=== PATIENT | female | born 1980 | race American Indian/Alaskan Native ===

== ENCOUNTER 2018-07-11 06:05 | Emergency (ER) | payer BC ==
[2018-07-11] MEDS ORDERED: ASPIRIN PO ONE (06:16)
--- NOTE | 2018-07-11 06:49 | XRay Report ---
FINAL REPORT EXAM: XR CHEST ROUTINE 2V HISTORY: chest pain, SOB with exertion TECHNIQUE: PA and lateral views of the chest were submitted. FINDINGS: The heart size and vascularity appear normal. The lungs are clear. Pleural fluid is not seen. The skeletal structures reveal a dextroscoliosis of the dorsal spine. IMPRESSION: No acute cardiopulmonary process.
[2018-07-11 07:08] LABS: Hematocrit 39.9 % (30.3-42.9); Hemoglobin 13.2 gm/dl (10.1-14.3); Mean Corpuscular HGB Conc 33 % (30-34); Mean Corpuscular Hemoglobin 28 pg (28-32); Mean Corpuscular Volume 86 fl (79-97); Platelet Count 299 K/mm3 (140-440); Red Blood Count 4.65 M/mm3 (3.65-5.03); Red Cell Distribution Width 13.4 % (13.2-15.2)
[2018-07-11 09:21] LABS: Basophils % (Manual) 0 % (0.0-1.8); RBC Morphology Normal; Total Cells Counted 100
[2018-07-11 09:25] LABS: BUN/Creatinine Ratio 19; Blood Urea Nitrogen 13 mg/dL (7-17); Hemolysis Index 170
--- NOTE | 2018-07-11 10:14 | Emergency Department Report ---
ED Chest Pain HPI - General Chief Complaint: Chest Pain Stated Complaint: CHEST,SHOULDER,BACK PAIN Time Seen by Provider: 07/11/18 10:13 Source: patient, RN notes reviewed Mode of arrival: Ambulatory Limitations: No Limitations - History of Present Illness Initial Comments: This is a 37-year-old female who was not known to this provider previously, right-hand dominant, reports that she is not , and reports that she does not take oral contraceptives. She denies leg pain, leg swelling, recent immobility, and also denies DVT, pulmonary embolus risk factors. She denies recent cocaine use and denies recent aspirin use. She denies family history of coronary artery disease or DVT, pulmonary embolus. The patient presents to the ER with complaint of left-sided chest wall pain. The pain is intermittent since Tuesday. Today is Tuesday. The pain does not radiates to the back, arms or neck. There is no nausea, vomiting or diaphoresis. The pain increases with palpation, abduction, adduction and range of motion. It decreases with rest. MD Complaint: chest pain -: Gradual Onset: during rest, other Pain Location: left chest Pain Radiation: none Severity: mild Quality: aching Consistency: intermittent Improves With: rest Worsens With: palpation, movement Aspirin use within the Past 7 Days: (0) No - Related Data On Oral Contraceptives: No Previous Rx's Medication Instructions Recorded Last Taken Type Acetaminophen/Codeine 1 tab PO Q6H PRN #20 tab 10/23/14 Unknown Rx [Acetaminophen-Codeine #3 TAB] Cyclobenzaprine [Flexeril 10mg] 10 mg PO TID PRN #30 tablet 10/23/14 Unknown Rx Ibuprofen [Motrin] 600 mg PO Q8H PRN #40 tablet 10/23/14 Unknown Rx Acetaminophen [Tylenol Arthritis] 650 mg PO Q6HR PRN #30 tablet.er 07/11/18 Unknown Rx Ibuprofen [Motrin] 600 mg PO Q8H PRN #30 tablet 07/11/18 Unknown Rx Allergies Allergy/AdvReac Type Severity Reaction Status Date / Time No Known Allergies Allergy Verified 10/23/14 06:48 Heart Score - HEART Score History: Slightly suspicious EKG: Normal Age: < 45 Risk factors: No known risk factors Troponin: < normal limit HEART Score: 0 - Critical Actions Critical Actions: 0-3 pts:0.9-1.7%risk of adverse cardiac event.Candidate for discharge ED Review of Systems ROS: Stated complaint: CHEST,SHOULDER,BACK PAIN Other details as noted in HPI Constitutional: denies: diaphoresis, fever Eyes: denies: eye discharge ENT: denies: epistaxis Respiratory: denies: cough Cardiovascular: chest pain Gastrointestinal: denies: nausea, vomiting Genitourinary: denies: dysuria Musculoskeletal: myalgia. denies: back pain Skin: denies: lesions Neurological: denies: weakness Psychiatric: denies: anxiety ED Past Medical Hx - Past Medical History Previous Medical History?: No - Surgical History Past Surgical History?: No Additional Surgical History: x4 - Social History Smoking Status: Never Smoker Substance Use Type: None - Medications Home Medications: Home Medications Medication Instructions Recorded Confirmed Last Taken Type Acetaminophen/Codeine 1 tab PO Q6H PRN #20 tab 10/23/14 Unknown Rx [Acetaminophen-Codeine #3 TAB] Cyclobenzaprine [Flexeril 10mg] 10 mg PO TID PRN #30 tablet 10/23/14 Unknown Rx Ibuprofen [Motrin] 600 mg PO Q8H PRN #40 tablet 10/23/14 Unknown Rx Acetaminophen [Tylenol Arthritis] 650 mg PO Q6HR PRN #30 tablet.er 07/11/18 Unknown Rx Ibuprofen [Motrin] 600 mg PO Q8H PRN #30 tablet 07/11/18 Unknown Rx ED Physical Exam - General Limitations: No Limitations General appearance: alert, in no apparent distress - Head Head exam: Present: atraumatic, normocephalic - Eye Eye exam: Present: normal appearance, EOMI. Absent: nystagmus - ENT ENT exam: Present: normal exam, normal orophraynx, mucous membranes moist, normal external ear exam - Neck Neck exam: Present: normal inspection, full ROM. Absent: tenderness, meningismus - Respiratory Respiratory exam: Present: normal lung sounds bilaterally, chest wall tenderness , other (during chest, breast exam, chaperoned by nurse JOVANI REDMAN). Absent: respiratory distress - Cardiovascular Cardiovascular Exam: Present: regular rate, normal rhythm, normal heart sounds. Absent: bradycardia, tachycardia, irregular rhythm, systolic murmur, diastolic murmur, rubs, gallop - GI/Abdominal GI/Abdominal exam: Present: soft. Absent: distended, tenderness, guarding, rebound, rigid, pulsatile mass - Extremities Exam Extremities exam: Present: normal inspection, full ROM, normal capillary refill , other (2+ pulses noted in the bilateral upper, lower extremities. Compartments soft. No long bony tenderness. The pelvis is stable.). Absent: tenderness, pedal edema, joint swelling, calf tenderness - Back Exam Back exam: Present: normal inspection, full ROM. Absent: tenderness, CVA tenderness (R), paraspinal tenderness, vertebral tenderness - Neurological Exam Neurological exam: Present: alert, oriented X3, CN II-XII intact, normal gait, other (Extraocular movements intact. Tongue midline. No facial droop. Facial sensation intact to light touch in the V1, V2, V3 distribution bilaterally. 5 and 5 strength in 4 extremities.. Sensation is intact to light touch in 4 extremities.). Absent: motor sensory deficit - Psychiatric Psychiatric exam: Present: normal affect, normal mood - Skin Skin exam: Present: warm, dry, intact, normal color. Absent: rash ED Course Vital Signs 07/11/18 07/11/18 07/11/18 06:10 06:12 06:18 Temperature 98.8 F 98.8 F 98.2 F Pulse Rate 106 H 108 H 78 Respiratory 18 18 18 Rate Blood Pressure 144/91 144/91 173/86 Blood Pressure [Right] O2 Sat by Pulse 98 98 94 Oximetry 07/11/18 10:25 Temperature 98.3 F Pulse Rate 84 Respiratory 20 Rate Blood Pressure Blood Pressure 118/70 [Right] O2 Sat by Pulse 99 Oximetry BARTOLOME score - Bartolome Score Age > 65: (0) No Aspirin use within the Past 7 Days: (0) No 3 or more CAD Risk Factors: (0) No 2 or more Angina events in past 24 hrs: (0) No Known CAD with more than 50% Stenosis: (0) No Elevated Cardiac Markers: (0) No ST Deviation Greater than 0.5mm: (0) No BARTOLOME Score: 0 ED Medical Decision Making - Lab Data Result diagrams: 07/11/18 06:59 07/11/18 06:55 Vital Signs 07/11/18 07/11/18 07/11/18 06:10 06:12 06:18 Temperature 98.8 F 98.8 F 98.2 F Pulse Rate 106 H 108 H 78 Respiratory 18 18 18 Rate Blood Pressure 144/91 144/91 173/86 Blood Pressure [Right] O2 Sat by Pulse 98 98 94 Oximetry 07/11/18 10:25 Temperature 98.3 F Pulse Rate 84 Respiratory 20 Rate Blood Pressure Blood Pressure 118/70 [Right] O2 Sat by Pulse 99 Oximetry Lab Results 07/11/18 07/11/18 07/11/18 Range/Units 06:55 06:59 09:21 WBC 5.6 (4.5-11.0) K/mm3 RBC 4.65 (3.65-5.03) M/mm3 Hgb 13.2 (10.1-14.3) gm/dl Hct 39.9 (30.3-42.9) % MCV 86 (79-97) fl MCH 28 (28-32) pg MCHC 33 (30-34) % RDW 13.4 (13.2-15.2) % Plt Count 299 (140-440) K/mm3 Lymph % (Auto) Administrative Executive Add Manual Diff Complete Total Counted 100 Seg Neutrophils % Administrative Executive Seg Neuts % (Manual) 46.0 (40.0-70.0) % Band Neutrophils % 0 % Lymphocytes % (Manual) 52.0 H (13.4-35.0) % Reactive Lymphs % (Man) 0 % Monocytes % (Manual) 1.0 (0.0-7.3) % Eosinophils % (Manual) 1.0 (0.0-4.3) % Basophils % (Manual) 0 (0.0-1.8) % Metamyelocytes % 0 % Myelocytes % 0 % Promyelocytes % 0 % Blast Cells % 0 % Nucleated RBC % 1.0 H (0.0-0.9) % Seg Neutrophils # Man 2.6 (1.8-7.7) K/mm3 Band Neutrophils # 0.0 K/mm3 Lymphocytes # (Manual) 2.9 (1.2-5.4) K/mm3 Abs React Lymphs (Man) 0.0 K/mm3 Monocytes # (Manual) 0.1 (0.0-0.8) K/mm3 Eosinophils # (Manual) 0.1 (0.0-0.4) K/mm3 Basophils # (Manual) 0.0 (0.0-0.1) K/mm3 Metamyelocytes # 0.0 K/mm3 Myelocytes # 0.0 K/mm3 Promyelocytes # 0.0 K/mm3 Blast Cells # 0.0 K/mm3 WBC Morphology Not Reportable Hypersegmented Neuts Not Reportable Hyposegmented Neuts Not Reportable Hypogranular Neuts Not Reportable Smudge Cells Not Reportable Toxic Granulation Not Reportable Toxic Vacuolation Not Reportable Dohle Bodies Not Reportable Pelger-Huet Anomaly Not Reportable Pat Rods Not Reportable Platelet Estimate Appears normal Clumped Platelets Not Reportable Plt Clumps, EDTA Not Reportable Large Platelets Not Reportable Giant Platelets Not Reportable Platelet Satelliting Not Reportable Plt Morphology Comment Not Reportable RBC Morphology Normal Dimorphic RBCs Not Reportable Polychromasia Not Reportable Hypochromasia Not Reportable Poikilocytosis Not Reportable Anisocytosis Not Reportable Microcytosis Not Reportable Macrocytosis Not Reportable Spherocytes Not Reportable Pappenheimer Bodies Not Reportable Sickle Cells Not Reportable Target Cells Not Reportable Tear Drop Cells Not Reportable Ovalocytes Not Reportable Helmet Cells Not Reportable [place] Bodies Not Reportable [place] Rings Not Reportable [place] Cells Not Reportable Bite Cells Not Reportable Crenated Cell Not Reportable Elliptocytes Not Reportable Acanthocytes (Spur) Not Reportable Rouleaux Not Reportable Hemoglobin C Crystals Not Reportable Schistocytes Not Reportable Malaria parasites Not Reportable Rogelio Bodies Not Reportable Hem Pathologist Commnt No Sodium 133 L (137-145) mmol/L Potassium 4.8 (3.6-5.0) mmol/L Chloride 97.2 L (98-107) mmol/L Carbon Dioxide 21 L (22-30) mmol/L Anion Gap 20 mmol/L BUN 13 (7-17) mg/dL Creatinine 0.7 (0.7-1.2) mg/dL Estimated GFR > 60 ml/min BUN/Creatinine Ratio 19 % Glucose 104 H (65-100) mg/dL Calcium 9.0 (8.4-10.2) mg/dL Troponin T < 0.010 < 0.010 (0.00-0.029) ng/mL - EKG Data -: EKG Interpreted by Md - EKG Data When compared to previous EKG there are: previous EKG unavailable 07/11/18 11:12 EKG #1 shows normal sinus, 93 bpm, normal axis, normal intervals, not a STEMI, repeat EKG is unchanged. - Radiology Data Radiology results: report reviewed, image reviewed X-ray of the chest is negative for acute disease - Medical Decision Making Differential diagnosis, including but not limited to: GERD, gastritis, costochondritis, hiatal hernia, acute coronary syndrome, musculoskeletal chest wall pain Assessment and plan: 37-year-old female with 3-4 days of intermittent chest wall pain, which increases with palpation, range of motion, decreases with rest. EKG unremarkable 2, troponin negative 2, felt improved after pain medication, low risk by BARTOLOME score, heart score, has no pulmonary embolus or DVT risk factors and is low risk by well's criteria. Has equal pulses in the upper, lower extremity; unlikely to be aortic event. Patient at low risk for major first cardiac event, and is medically suitable to follow-up with an outpatient primary care doctor or derrick boat leverman to complete her low risk cardiology risk stratification. Critical care attestation.: If time is entered above; I have spent that time in minutes in the direct care of this critically ill patient, excluding procedure time. ED Disposition Clinical Impression: Chest wall pain Disposition: DC-01 TO HOME OR SELFCARE Is pt being admited?: No Does the pt Need Aspirin: No Condition: Stable Instructions: Costochondritis (ED) Additional Instructions: Rest, and avoid heavy lifting. Avoid strenuous physical activity. Take the pain medications as directed. Follow up with a primary care doctor or derrick boat leverman within the next 5 days. Return to the ER right away with new pain , worsened pain, migration of pain, projectile vomiting, change in mental status , confusion, inability to tolerate liquid feeds. Referrals: [facility] [Provider Group] - 3-5 Days [facility] [Provider Group] - 3-5 Days [facility] [Provider Group] - 3-5 Days
[2018-07-11] MEDS ORDERED: TORADOL IM ONE (10:23)
[2018-07-11 11:17] VITALS: BP 116/74
== END 2018-07-11 12:16 | disposition home or self-care (01) ==
LOC: ED 06:05
DX: R07.89 Other chest pain (principal)
CPT/HCPCS: 36415; 71046; 80048; 84484; 85007; 85025; 93005; 93010; 96372; 99284; J1885

== ENCOUNTER 2019-03-29 07:53 | Emergency (ER) | payer BC ==
--- NOTE | 2019-03-29 08:38 | Emergency Department Report ---
HPI - General Chief Complaint: Upper Respiratory Infection Time Seen by Provider: 03/29/19 08:20 - HPI HPI: 38-year-old female presents to the emergency department with complaint of a lingering cough. She says it is mostly dry but she will have coughing fits. She she went to see a physician at [facility] about 2 weeks ago for this cough and was placed on prednisone, Ventolin inhaler, Z-Tejas and Tessalon Perles. She finished these medications about one week ago and does not feel that her cough has improved significantly. Last night she was at a movie theater and had some coughing fits and felt short of breath. She denies any fever, chest pain, back pain, nausea, vomiting or diaphoresis. She denies any other past medical history. She has not a tobacco smoker and denies any illicit drug use. No recent travel. ED Past Medical Hx - Past Medical History Previous Medical History?: No - Surgical History Additional Surgical History: x4 - Social History Smoking Status: Never Smoker Substance Use Type: None - Medications Home Medications: Home Medications Medication Instructions Recorded Confirmed Last Taken Type Acetaminophen/Codeine 1 tab PO Q6H PRN #20 tab 10/23/14 Unknown Rx [Acetaminophen-Codeine #3 TAB] Cyclobenzaprine [Flexeril 10mg] 10 mg PO TID PRN #30 tablet 10/23/14 Unknown Rx Ibuprofen [Motrin] 600 mg PO Q8H PRN #40 tablet 10/23/14 Unknown Rx Acetaminophen [Tylenol Arthritis] 650 mg PO Q6HR PRN #30 tablet.er 07/11/18 Unknown Rx Ibuprofen [Motrin] 600 mg PO Q8H PRN #30 tablet 07/11/18 Unknown Rx Prednisone [predniSONE 10 mg 10 mg PO .TAPER #1 tab.ds.pk 03/29/19 Unknown Rx (6-Day Pack, 21 Tabs)] guaiFENesin/CODEINE [Robitussin AC] 5 ml PO Q6H PRN #100 oral.liqd 03/29/19 Unknown Rx ED Review of Systems ROS: Stated complaint: COUGH/SOB Other details as noted in HPI Constitutional: denies: chills, fever Eyes: denies: eye pain, vision change ENT: denies: ear pain, throat pain Respiratory: cough, shortness of breath. denies: orthopnea Cardiovascular: denies: chest pain, edema Gastrointestinal: denies: abdominal pain, vomiting Genitourinary: denies: dysuria, discharge Musculoskeletal: denies: back pain, arthralgia Skin: denies: rash, lesions Neurological: denies: headache, weakness Physical Exam - Physical Exam Vital Signs: Vital Signs 03/29/19 08:03 Temperature 98.8 F Pulse Rate 90 Respiratory 16 Rate Blood Pressure 130/85 O2 Sat by Pulse 98 Oximetry Physical Exam: GENERAL: The patient is well-developed well-nourished. HENT: Normocephalic. Atraumatic. Patient has moist mucous membranes. EYES: Extraocular motions are intact. Pupils equal reactive to light bilaterally. NECK: Supple. Trachea is midline. CHEST/LUNGS: Mild expiratory wheezing. A dry cough is heard during examination with coughing fits. No tachypnea. No accessory muscle use. There is no respiratory distress noted. HEART/CARDIOVASCULAR: Regular. There is no tachycardia. There is no murmur. ABDOMEN: Abdomen is soft, nontender. Patient has normal bowel sounds. There is no abdominal distention. SKIN: Skin is warm and dry. NEURO: The patient is awake, alert, and oriented. The patient is cooperative. The patient has no focal neurologic deficits. The patient has normal speech. MUSCULOSKELETAL: There is no tenderness or deformity. There is no evidence of acute injury. ED Course Vital Signs 03/29/19 08:03 Temperature 98.8 F Pulse Rate 90 Respiratory 16 Rate Blood Pressure 130/85 O2 Sat by Pulse 98 Oximetry ED Medical Decision Making - Radiology Data Radiology results: image reviewed interpreted by me: Chest x-ray does not show any acute process. There are no pleural effusions, obvious pneumonia and there is no pneumothorax. - Medical Decision Making This patient presents with a lingering cough going on for the past 3 weeks. This is despite already being treated with Tessalon Perles, prednisone, Z-Tejas and an albuterol inhaler. On examination she does have a dry cough with some coughing fits but otherwise does not have any visible shortness of breath or signs of respiratory distress. She has a mild expiratory wheeze. She was given a breathing treatment with some improvement of her symptoms. An x-ray was done that does not show any pneumonia, or any other acute process. Her vital signs are stable including being afebrile, no tachypnea, and no hypoxia. The patient will be discharged home with Robitussin-AC for her cough and a steroid pack. She is encouraged to return to see her primary care physician at [facility] but return to the ER with any worsening of her symptoms or any acute distress. - Differential Diagnosis bronchitis, asthma, pneumonia Critical Care Time: No Critical care attestation.: If time is entered above; I have spent that time in minutes in the direct care of this critically ill patient, excluding procedure time. ED Disposition Clinical Impression: Bronchitis Disposition: DC- TO HOME OR SELFCARE Is pt being admited?: No Condition: Stable Instructions: Chronic Bronchitis (ED) Additional Instructions: Please follow-up with your primary care physician in the next few days. Return to the emergency Department if any worsening of your symptoms or any acute distress. You have been prescribed a medication that is sedating and therefore should not be taken prior to driving, working, and responsible for children and in no way should be mixed with alcohol of any quantity. Prescriptions: Prednisone [predniSONE 10 mg (6-Day Pack, 21 Tabs)] 10 mg PO .TAPER #1 tab.ds.pk guaiFENesin/CODEINE [Robitussin AC] 5 ml PO Q6H PRN #100 oral.liqd PRN Reason: Cough Referrals: [facility] [Outside] - 3-5 Days Time of Disposition: 09:18
[2019-03-29] MEDS ORDERED: DUONEB *Not for PRN Use IH ONE (08:44)
--- NOTE | 2019-03-29 09:13 | XRay Report ---
PA and lateral chest: Cough. The lungs are clear and the hilar and mediastinal regions are unremarkable. There is a dextroscoliosis of the midthoracic spine. These findings are unchanged compared to prior exam in July 2018. Impression: No acute findings.
[2019-03-29 09:44] VITALS: BP 125/78
== END 2019-03-29 09:42 | disposition home or self-care (01) ==
LOC: ED 07:53
DX: J40 Bronchitis, not specified as acute or chronic (principal)
CPT/HCPCS: 71046; 94640

== ENCOUNTER 2021-06-30 06:21 | Emergency (ER) | payer SELFPAY ==
[2021-06-30 08:08] VITALS: BP 127/89
== END 2021-06-30 08:15 ==
LOC: ED 06:21
DX: J02.9 Acute pharyngitis, unspecified (principal); R51.9 Headache, unspecified; Z53.21 Procedure and treatment not carried out due to patient leaving prior to being seen by health care provider